=== PATIENT | male | born 1960 | race Caucasian/White ===

== ENCOUNTER 2019-12-07 23:49 | Observation (INO) | payer OTHER, BC ==
[~2019-12-07] VITALS: Ht 74 cm; Wt 88.0 kg
--- OUTSIDE RECORDS SUMMARY | 2019-12-07 23:56 | XMS REPORT | Continuity of Care Document ---
Author Organization Unknown Address Unknown Phone Unavailable Allergies Active Description Code Type Severity Reaction Onset Reported/Identified Relationship to Patient Clinical Status Yes Penicillins [id number] Drug Aller gy Unknown N/A 03/26/2008 Medications There is no data. 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 Results There is no data. Encounters ACCT No. Visit Date/Time Discharge Status Pt. Type Provider Facility Loc./Unit Complaint [id number] 12/07/2019 23:52:[address] Emergency AVNI ZARAGOZA DO [facility] ER FALL OFF TRAILOR,BACK PAIN [id number] 04/13/2011 07:41:00 Document Registration
--- OUTSIDE RECORDS SUMMARY | 2019-12-07 23:56 | XMS REPORT ---
Author Author Arjun CANO Organization [facility] Address [address] [place] [address] Phone Unavailable Care Team Providers Care Workforce Development Program Director Name Role Phone AMADA CANO Unavailable Unavailable PROBLEMS Unknown Problems ALLERGIES No Information ENCOUNTERS Encounter Location Date Diagnosis [facility] [address] [facility] [id number] [place] [address] Mar, Encounter for insurance exam ination Z02.6 IMMUNIZATIONS No Known Immunizations SOCIAL HISTORY Never Assessed REASON FOR VISIT Insurance Physical PLAN OF CARE Activity Details Follow Up prn Reason: VITAL SIGNS MEDICATIONS Unknown Medications RESULTS No Results PROCEDURES Procedure Date Ordered Result Body Site VENIPUNCT, ROUTINE* Mar 15, 2018 SPECIMEN HANDLING Mar 15, 2018 ELECTROCARDIOGRAM, TRACING Mar 15, 2018 INSTRUCTIONS MEDICATIONS ADMINISTERED No Known Medications
[2019-12-08] MEDS ORDERED: LACTATED RINGERS 1,000 ML IV ONE (00:51)
[2019-12-08] MEDS ORDERED: fentaNYL INJECTION 100 MCG/2 ML AMP IVP STA ×2 (00:51→02:38)
[2019-12-08 01:20] LABS: BASOPHILS % (AUTO) 0 % (0-10); EOSINOPHILS # (AUTO) 0.1 10^3/uL (0.0-0.3); EOSINOPHILS % (AUTO) 0 % (0-10); HEMATOCRIT 46 % (40-54); HEMOGLOBIN 15.8 G/DL (13.3-17.7); LYMPHOCYTES # (AUTO) 2.5 X 10^3 (1.0-4.0); LYMPHOCYTES % (AUTO) 16 % (12-44); MEAN CORPUSCULAR HEMOGLOBIN 30 PG (25-34); MEAN CORPUSCULAR HGB CONC 34 G/DL (32-36); MEAN CORPUSCULAR VOLUME 88 FL (80-99); MEAN PLATELET VOLUME 9.1 FL (7.4-10.4); MONOCYTES # (AUTO) 2.2 X 10^3 (0.0-1.0); MONOCYTES % (AUTO) 14 % (0-12); NEUTROPHILS # (AUTO) 10.7 X 10^3 (1.8-7.8); NEUTROPHILS % (AUTO) 69 % (42-75); PLATELET COUNT 283 10^3/uL (130-400); RED CELL DISTRIBUTION WIDTH 13.1 % (10.0-14.5); WHITE BLOOD COUNT 15.5 10^3/uL (4.3-11.0)
[2019-12-08 01:24] LABS: ALBUMIN 4.3 GM/DL (3.2-4.5)
[2019-12-08 01:25] LABS: AMYLASE 91 U/L (25-125); CHLORIDE 105 MMOL/L (98-107); POTASSIUM 3.8 MMOL/L (3.6-5.0); SODIUM 139 MMOL/L (135-145)
[2019-12-08 01:26] LABS: CALCIUM 10.3 MG/DL (8.5-10.1)
[2019-12-08 01:27] LABS: GLUCOSE 118 MG/DL (70-105); TOTAL PROTEIN 7.7 GM/DL (6.4-8.2)
[2019-12-08 01:28] LABS: CARBON DIOXIDE 20 MMOL/L (21-32)
[2019-12-08 01:29] LABS: BILIRUBIN,TOTAL 0.4 MG/DL (0.1-1.0)
[2019-12-08 01:30] LABS: ALKALINE PHOSPHATASE 58 U/L (40-136)
[2019-12-08 01:31] LABS: CREATININE SERUM 1.04 MG/DL (0.60-1.30); GFR ESTIMATED > 60
[2019-12-08 01:32] LABS: BUN/CREATININE RATIO 28
[2019-12-08 01:33] LABS: ALANINE AMINOTRANSFERASE 20 U/L (0-55)
[2019-12-08 01:34] LABS: LIPASE 55 U/L (8-78)
[2019-12-08 02:01] LABS: LYMPHOCYTES % (MANUAL) 16 %; MONOCYTES % (MANUAL) 9 %; NEUTROPHILS % (MANUAL) 75 %
[2019-12-08 02:02] LABS: RBC MORPH NORMAL
[2019-12-08 02:41] LABS: BILIRUBIN,URINE NEGATIVE (NEGATIVE); CLARITY,URINE CLEAR; COLOR,URINE YELLOW; GLUCOSE, URINE (UA) 2+ (NEGATIVE); KETONES,URINE 1+ (NEGATIVE); LEUKOCYTE ESTERASE ,URINE NEGATIVE (NEGATIVE); NITRITE,URINE NEGATIVE (NEGATIVE); PH,URINE 5.5 (5-9); PROTEIN,URINE TRACE (NEGATIVE)
[2019-12-08 02:53] LABS: BACTERIA,URINE NEGATIVE /HPF
[2019-12-08 02:54] LABS: SQUAMOUS EPITHELIAL CELL,UR RARE /HPF
[2019-12-08] MEDS ORDERED: IOHEXOL 350 MG/ML 100 ML (OMNIPAQUE 350) VIAL IV ONE (03:00)
[2019-12-08] MEDS ORDERED: HOLD METFORMIN - RECEIVED CONTRAST 20 ML VIAL IV SCH (03:00)
[2019-12-08] MEDS ORDERED: NS 100 ML (IVPB) BAG IV ONE (03:00)
[2019-12-08 04:30] VITALS: BP 119/77
[2019-12-08] MEDS ORDERED: D5 1/2 NS W/KCL 20 MEQ/L 1,000 ML IV ONE (04:40)
[2019-12-08 05:00] VITALS: BP 113/81
[2019-12-08 05:18] VITALS: BP 119/77
[2019-12-08] MEDS ORDERED: inSUlin ASPART (NovoLOG) 1 UNIT/0.01 ML (CHARGE PER UNIT) SC SCH (06:00)
[2019-12-08] MEDS ORDERED: D5 1/2 NS W/KCL 20 MEQ/L 1,000 ML IV SCH (06:00)
[2019-12-08] MEDS ORDERED: fentaNYL INJECTION 100 MCG/2 ML AMP IV PRN (06:00)
[2019-12-08 06:39] LABS: BILIRUBIN,URINE NEGATIVE (NEGATIVE); CLARITY,URINE CLEAR; COLOR,URINE YELLOW; GLUCOSE, URINE (UA) 2+ (NEGATIVE); KETONES,URINE TRACE (NEGATIVE); LEUKOCYTE ESTERASE ,URINE NEGATIVE (NEGATIVE); NITRITE,URINE NEGATIVE (NEGATIVE); PH,URINE 5.5 (5-9); PROTEIN,URINE NEGATIVE (NEGATIVE)
--- NOTE | 2019-12-08 07:03 | Diagnostic Imaging Report ---
PROCEDURE: CT head and CT cervical spine without contrast. TECHNIQUE: Multiple contiguous axial images were obtained through the brain and cervical spine without the use of intravenous contrast. Sagittal and coronal reformations through the cervical spine were then performed. Auto Exposure Controls were utilized during the CT exam to meet ALARA standards for radiation dose reduction. INDICATION: Fall with head and neck injury CT HEAD: CT images of the head were obtained. FINDINGS: Ventricles and sulci are within normal limits for size. There is no intracranial hemorrhage identified. There is no abnormal mass effect or shift of midline structures. IMPRESSION: Unremarkable CT of the head. CT CERVICAL SPINE: Multiple contiguous axial CT images of the cervical spine were obtained with sagittal and coronal reformatted images produced. FINDINGS: The cervical curvature and alignment are within normal limits. The vertebral body heights and disc spaces are maintained without evidence of fracture or subluxation. There is no paraspinous hematoma. There is moderate disc space narrowing from C4 through C7 with associated endplate spurring. IMPRESSION: No CT evidence of acute cervical spinal abnormality. Dictated by: Dictated on workstation # [id number]
--- NOTE | 2019-12-08 07:21 | Diagnostic Imaging Report ---
PROCEDURE: CT thoracic and lumbar spine without contrast. TECHNIQUE: Multiple contiguous axial images were obtained through the thoracic and lumbar spine without the use of intravenous contrast. Sagittal and coronal reformations were then performed. All CT scans use one or more of the following dose optimizing techniques: automated exposure control, MA and/or KvP adjustment based on a patient size and exam type, or iterative reconstruction. INDICATION: Fall off a trailer. Back and left-sided pain. COMPARISON: None. FINDINGS: No acute fracture or dislocation is seen in the thoracic and lumbar spine. Vertebral body heights are well-maintained. There is grade 1 anterolisthesis of L4 on L5. Otherwise, alignment of the thoracic and lumbar spine is anatomic. No focal osseous lesions are identified. Mild degenerative changes are present in the thoracic and lumbar spine, greatest at L5-S1 with disc osteophyte complex and facet hypertrophy. No high density material is seen in the spinal canal. The surrounding soft tissues of the thoracic and lumbar spine are unremarkable. The included pelvis demonstrates no acute fracture or dislocation. IMPRESSION: 1. No acute fracture or dislocation in the thoracic and lumbar spine. 2. Grade 1 anterolisthesis of L4 on L5. Agree with overnight report. Dictated by: Dictated on workstation # [id number]
--- NOTE | 2019-12-08 07:27 | Diagnostic Imaging Report ---
Indication: Injury from a fall AP view pelvis shows no fracture or dislocation. IMPRESSION: Negative pelvis Dictated by: Dictated on workstation # [id number]
--- NOTE | 2019-12-08 07:28 | Diagnostic Imaging Report ---
Indication: Chest injury from a fall Portable chest 2:00 AM Heart size and pulmonary vascularity are normal. Lungs are clear. There are no effusions or pneumothoraces. IMPRESSION: Negative chest Dictated by: Dictated on workstation # [id number]
[2019-12-08 07:38] LABS: BACTERIA,URINE NEGATIVE /HPF; SQUAMOUS EPITHELIAL CELL,UR 0-2 /HPF
--- NOTE | 2019-12-08 07:41 | Diagnostic Imaging Report ---
EXAMINATION: CT Chest, Abdomen and Pelvis with intravenous contrast. TECHNIQUE: Multiple contiguous axial images were obtained through the chest, abdomen and pelvis after the uneventful administration of intravenous contrast. All CT scans use one or more of the following dose optimizing techniques: automated exposure control, MA and/or KvP adjustment based on a patient size and exam type, or iterative reconstruction. HISTORY: Fell off a trailer 2'. Back and left-sided pain. COMPARISON: None available. FINDINGS: CT CHEST: The heart size is within normal limits. No pericardial effusion is present. There is no mediastinal, hilar, or axillary lymphadenopathy. The lungs demonstrate no pulmonary nodules or masses. There are no focal areas of consolidation. A small amount of dependent atelectasis is seen in the lung bases. No central endobronchial obstructing lesions are identified. Trace left-sided pneumothorax is visualized anterior to the heart. No pleural effusion is seen. The osseous structures demonstrate no acute abnormalities. CT ABDOMEN AND PELVIS: The liver, spleen, pancreas, adrenal glands, and kidneys have a normal appearance. There is no pathologically enlarged mesenteric or retroperitoneal adenopathy. The bowel loops are nondilated. Scattered diverticuli are present without evidence of acute diverticulitis. There is no free fluid or free air. The osseous structures demonstrate no acute abnormalities. 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 Ureters and bladder have a normal appearance. There is no free air, loculated collection, or adenopathy in the pelvis. IMPRESSION: 1. Trace left-sided pneumothorax anterior to the heart. No associated rib fractures are identified. No pleural effusion or pulmonary laceration. 2. No acute abnormalities in the abdomen and pelvis. No free fluid, free air, or acute inflammatory changes. Agree with overnight report. Dictated by: Dictated on workstation # [id number]
[2019-12-08 08:00] VITALS: BP 127/63
--- OUTSIDE RECORDS SUMMARY | 2019-12-08 08:03 | XMS REPORT | Continuity of Care Document ---
Author Organization Unknown Address Unknown Phone Unavailable Allergies Active Description Code Type Severity Reaction Onset Reported/Identified Relationship to Patient Clinical Status Yes Penicillins [id number] Drug Aller gy Unknown N/A 03/26/2008 Medications There is no data. 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 Results Test Result Range Complete blood count (CBC) with automate d white blood cell (WBC) differential - 12/08/19 01:01 Blood leukocytes automated count (number/volume) 15.5 10*3/uL 4.3-11.0 Blood erythrocytes automated count (number/volume) 5.27 10*6/uL 4.35-5.85 Venous blood hemoglobin measurement (mass/volume) 15.8 g/dL 13.3-17.7 Blood hematocrit (volume fraction) 46 % 40-54 Automated erythrocyte mean corpuscular volume 88 [ foz_us] 80-99 Automated erythrocyte mean corpuscular h emoglobin (mass per erythrocyte) 30 pg 25-34 Automated erythrocyte mean corpuscular h emoglobin concentration measurement (mass/volume) 34 g/dL 32-36 Automated erythrocyte distribution width ratio 13. 1 % 10.0- 14.5 Automated blood platelet count (count/volume) 283 10*3/uL 130-400 Automated blood platelet mean volume measurement 9.1 [foz_us] 7.4-10.4 Automated blood neutrophils/100 leukocytes 69 % 42-75 Automated blood lymphocytes/100 leukocytes 16 % 12-44 Blood monocytes/100 leukocytes 14 % 0-12 Automated blood eosinophils/100 leukocytes 0 % 0-10 Automated blood basophils/100 leukocytes 0 % 0-10 Blood neutrophils automated count (number/volume) 10.7 10*3 1.8-7.8 Blood lymphocytes automated count (number/volume) 2.5 10*3 1.0-4.0 Blood monocytes automated count (number/volume) 2. 2 10*3 0.0-1.0 Automated eosinophil count 0.1 10*3/uL 0 .0-0.3 Automated blood basophil count (count/volume) 0.0 10*3/uL 0.0-0.1 Comprehensive metabolic panel - 12/08/19 01:01 Serum or plasma sodium measurement (moles/volume) 139 mmol/L 135-145 Serum or plasma potassium measurement (moles/volume) 3.8 mmol/L 3.6-5.0 Serum or plasma chloride measurement (moles/volume) 105 mmol/L 98-107 Carbon dioxide 20 mmol/L 21-32 Serum or plasma anion gap determination (moles/volume) 14 mmol/L 5-14 Serum or plasma urea nitrogen measurement (mass/volume ) 29 mg/dL 7-18 Serum or plasma creatinine measurement (mass/volume) 1.04 mg/dL 0.60-1.30 Serum or plasma urea nitrogen/creatinine mass ratio 28 NRG Serum or plasma creatinine measurement w ith calculation of estimated glomerular filtration rate > NRG Serum or plasma glucose measurement (mass/volume) 118 mg/dL 70-105 Serum or plasma calcium measurement (mass/volume) 10.3 mg/dL 8.5-10.1 Serum or plasma total bilirubin measurement (mass/volu me) 0.4 mg/dL 0.1-1.0 Serum or plasma alkaline phosphatase chandni surement (enzymatic activity/volume) 58 U/L 40-136 Serum or plasma aspartate aminotransfera se measurement (enzymatic activity/volume) 29 U/L 5-34 Serum or plasma alanine aminotransferase measurement (enzymatic activity/volume) 20 U/L 0-55 Serum or plasma protein measurement (mass/volume) 7.7 g/dL 6.4-8.2 Serum or plasma albumin measurement (mass/volume) 4.3 g/dL 3.2-4.5 CALCIUM CORRECTED 10.1 mg/dL 8.5-10.1 Serum or plasma amylase measurement (enz ymatic activity/volume) - 12/08/19 01:01 Serum or plasma amylase measurement (enzymatic activit y/volume) 91 U/L 25-125 Lipase - 12/08/19 01:01 Lipase 55 U/L 8-78 Manual absolute plasma cell count - 09/23 01:01 Blood monocytes/100 leukocytes 9 % NRG Manual blood segmented neutrophils/100 leukocytes 75 % NRG Manual blood lymphocytes/100 leukocytes 16 % NRG Blood erythrocyte morphology finding identification NORMAL NRG Complete urinalysis with reflex to cultu re - 12/08/19 02:34 Urine color determination YELLOW NRG Urine clarity determination CLEAR NR G Urine pH measurement by test strip 5.5 5-9 Specific gravity of urine by test strip >= 1.016-1.022 Urine protein assay by test strip, semi-quantitative TRACE NEGATIVE Urine glucose detection by automated test strip 2+ NEGATIVE Erythrocytes detection in urine sediment by light micr oscopy 3+ NEGATIVE Urine ketones detection by automated test strip 1+ NEGATIVE Urine nitrite detection by test strip NEGATIVE NEGATIVE Urine total bilirubin detection by test strip NEGA TIVE NEGATIVE Urine urobilinogen measurement by automated test strip (mass/volume) 0.2 mg/dL < = 1.0 Urine leukocyte esterase detection by dipstick NEG ATIVE NEGATIVE Automated urine sediment erythrocyte cou nt by microscopy (number/high power field) [HPF] NRG Automated urine sediment leukocyte count by microscopy (number/high power field) NONE NRG Bacteria detection in urine sediment by light microsco py NEGATIVE NRG Squamous epithelial cells detection in u rine sediment by light microscopy RARE NRG Crystals detection in urine sediment by light microsco py NONE NRG Casts detection in urine sediment by light microscopy NONE NRG Mucus detection in urine sediment by light microscopy SMALL NRG Complete urinalysis with reflex to culture NO NRG Encounters ACCT No. Visit Date/Time Discharge Status Pt. Type Provider Facility Loc./Unit Complaint [id number] 12/08/2019 03:00:[address] Inpatient YEISON HAUSER MD [facility] CSD S/P FALL FROM TRAILER;L PNEU MOTHORAX [id number] 04/13/2011 07:41:00 Document Registration
[2019-12-08 08:13] LABS: BASOPHILS % (AUTO) 0 % (0-10); EOSINOPHILS # (AUTO) 0.1 10^3/uL (0.0-0.3); EOSINOPHILS % (AUTO) 1 % (0-10); HEMATOCRIT 44 % (40-54); HEMOGLOBIN 14.7 G/DL (13.3-17.7); LYMPHOCYTES # (AUTO) 2.3 X 10^3 (1.0-4.0); LYMPHOCYTES % (AUTO) 25 % (12-44); MEAN CORPUSCULAR HEMOGLOBIN 30 PG (25-34); MEAN CORPUSCULAR HGB CONC 34 G/DL (32-36); MEAN CORPUSCULAR VOLUME 88 FL (80-99); MEAN PLATELET VOLUME 8.8 FL (7.4-10.4); MONOCYTES # (AUTO) 1.7 X 10^3 (0.0-1.0); MONOCYTES % (AUTO) 18 % (0-12); NEUTROPHILS # (AUTO) 5.3 X 10^3 (1.8-7.8); NEUTROPHILS % (AUTO) 56 % (42-75); PLATELET COUNT 242 10^3/uL (130-400); RED CELL DISTRIBUTION WIDTH 13.1 % (10.0-14.5); WHITE BLOOD COUNT 9.5 10^3/uL (4.3-11.0)
[2019-12-08 08:22] LABS: ALBUMIN 3.6 GM/DL (3.2-4.5)
[2019-12-08 08:23] LABS: CHLORIDE 106 MMOL/L (98-107); POTASSIUM 3.7 MMOL/L (3.6-5.0); SODIUM 138 MMOL/L (135-145)
[2019-12-08 08:25] LABS: GLUCOSE 133 MG/DL (70-105); TOTAL PROTEIN 6.4 GM/DL (6.4-8.2)
[2019-12-08 08:26] LABS: CARBON DIOXIDE 23 MMOL/L (21-32)
[2019-12-08 08:27] LABS: BILIRUBIN,TOTAL 0.6 MG/DL (0.1-1.0)
[2019-12-08 08:29] LABS: ALKALINE PHOSPHATASE 51 U/L (40-136); CREATININE SERUM 0.88 MG/DL (0.60-1.30); GFR ESTIMATED > 60
[2019-12-08 08:30] LABS: BUN/CREATININE RATIO 23
[2019-12-08 08:32] LABS: ALANINE AMINOTRANSFERASE 17 U/L (0-55)
--- NOTE | 2019-12-08 10:00 | Diagnostic Imaging Report ---
INDICATION: Pneumothorax Upright portable inspiration chest shows normal heart size and vascularity. The lungs are clear. There is no effusion or pneumothorax. There is the appearance of a tiny apical pneumothorax on the left with separation of the lung from the apex of only 2-3 mm. IMPRESSION: Tiny left apical pneumothorax. Dictated by: Dictated on workstation # [id number]
--- NOTE | 2019-12-08 10:09 | Diagnostic Imaging Report ---
INDICATION: Fall with chest injury Single AP view of the chest is obtained with comparison made to study of earlier in the day. There is mild perihilar atelectasis however no pneumothorax is appreciated. There is no evidence of significant pleural fluid. No definite fracture is seen. IMPRESSION: Perihilar atelectasis due to expiratory state. Otherwise, no acute abnormality is identified. Dictated by: Dictated on workstation # [id number]
[2019-12-08] MEDS ORDERED: IBUP-1780 PO (11:20)
[2019-12-08] MEDS ORDERED: TRAM50TA3 PO (11:22)
[2019-12-08 12:00] VITALS: BP 145/80
--- NOTE | 2019-12-08 12:00 | NUR ---
This nurse received a verbal order from to discharge patient. stated that patient does not need to follow up with him. wrote the patient scripts for pain control and wrote the patient a note for work. this nurse removed patients IV, tip is intact. Gauze and tape applied to site. Entire discharge packet discussed with patient including new medications. Patient stated that he does not have any further questions att. Patients is at bedside, she is his ride home. Patient leaving floor at 1200, with MAXWELL Tai, who is walking with him to entrance.
--- NOTE | 2019-12-08 12:13 | HISTORY AND PHYSICAL ---
DATE OF SERVICE: ATTENDING PRIMARY CARE PHYSICIAN: Dr. Shakir Rouse. HISTORY OF PRESENT ILLNESS: The patient is a 59-year-old male, who was working on an automotive trailer, which was moving a large piece of equipment. As he and others were working on unloading, his feet hit the rail and he fell back, which was approximately 3 feet up. He felt pain in his left upper back. He states that he was able to ambulate afterwards; however, the pain persisted and he decided to come to the Emergency Department. A CT scan of the head, neck, chest, abdomen and pelvis were performed, which did not show any abnormalities; however, the chest x-ray did show a very small apical pneumothorax likely secondary to a barotrauma. Followup chest x-ray today does not show any pneumothorax. He is awake and alert with a Morton coma scale of 15 and is ambulating well with adequate pain control at this time. PAST MEDICAL HISTORY: Hypertension, hypercholesterolemia, gastroesophageal reflux disease and diabetes. PAST SURGICAL HISTORY: Lumbar diskectomy and left ankle ORIF. ALLERGIES: PENICILLIN. MEDICATIONS: Invokana, Nexium, aspirin, ranitidine and benazepril. SOCIAL HISTORY: Negative smoke and negative alcohol. FAMILY HISTORY: Mother, lung cancer. Father with coronary artery disease. REVIEW OF SYSTEMS: Well-nourished male in no acute distress. He is not experiencing any shortness of breath or difficulty breathing. No chest pain, palpitations or diaphoresis. No nausea, vomiting, no diarrhea or constipation. No headache or visual changes. No fever, chills and no recent inadvertent weight loss. All other review of systems negative. PHYSICAL EXAMINATION: VITAL SIGNS: Stable, afebrile. CHEST: Clear. Good breath sounds bilaterally, slightly tender to palpation along the posterolateral back just below the scapula on the left side. No crepitance. HEART: Regular and no murmurs. EXTREMITIES: No lower extremity edema and negative Homans sign. HEENT: No scleral icterus and no cervical lymphadenopathy. ABDOMEN: Soft, nontender and nondistended. SKIN: Warm and dry. ASSESSMENT AND PLAN: A 59-year-old male with fall with rib contusions as well as a small apical pneumothorax upon admission due to barotrauma, which has resolved on followup chest x-ray. We will start him on a regular diet as well as oral pain medication and once he has adequate pain control per oral pain medication, we will discharge him home. We also recommend frequent ambulation as well as deep breathing exercises. Job ID: [id number] DocumentID: [id number] Dictated Date: 12/08/2019 11:09:32 Resident Manager Date: 12/08/2019 12:12:45 Dictated By: YEISON HAUSER MD MTDD
--- NOTE | 2019-12-09 06:28 | ED Fall/Injury ---
General Chief Complaint: Trauma-Non Activation Stated Complaint: S/P FALL FROM TRAILER;L PNEUMOTHORAX Nursing Triage Note: Pt to RM 5 with daughter at bedside. Pt states he fell back off a trailer about 2 ft off ground approx 2130 tonight. PT hit back of head, denies LOC. PT is c/o back and left side pain, 5/10. 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 Source: patient History of Present Illness Date Seen by Provider: Dec 08, 2019 Time Seen by Provider: 00:08 Initial Comments PT ARRIVES VIA POV FROM HOME PT STATES AROUND 2130 TONIGHT, HE WAS LOADING EQUIPMENT ONTO A CAR TRAILER, AND GOT HIS LEG CAUGHT IN SIDE RAILING AND FELL BACKWARDS OFF THE TRAILER--APPROXIMATELY 3 FEET HIGH-AND LANDED ON HIS BACK STATES HE HIT THE BACK OF HIS HEAD, BUT HAD NO LOSS OF CONSCIOUSNESS DOES NOT HAVE A HEADACHE C/O PAIN TO LEFT MID AND UPPER BACK / POSTERIOR CHEST, AND LEFT MID AND LOWER CHEST STATES IT HURTS TO BREATH, BUT DOES NOT ACTUALLY FEEL SHORT OF BREATH STATES LEFT SIDE OF HIS NECK IS STARTING TO GET SORE AND STIFF NO PARESTHESIAS OR MOTOR DEFICITS NO DIZZINESS NO NAUSEA/VOMITING NO VISION CHANGES HAS NOT TAKEN ANYTHING FOR PAIN PAIN IS WORSE WITH SITTING AND SOMEWHAT IMPROVED WITH STANDING Allergies and Home Medications Allergies Coded Allergies: Penicillins (Verified Allergy, Unknown, 03/26/08) Home Medications Ibuprofen 800 Mg Tablet, 800 MG PO Q8H PRN for PAIN-MILD Prescribed by: XAVIER KAM on 12/08/19 1120 Tramadol HCl 50 Mg Tablet, 50 MG PO every 4-6hrs PRN Prescribed by: XAVIER KAM on 12/08/19 1122 Patient Home Medication List Home Medication List Reviewed: Yes Review of Systems Review of Systems Constitutional: no symptoms reported Eyes: No Symptoms Reported Ears, Nose, Mouth, Throat: no symptoms reported Respiratory: see HPI; No short of breath; other (HURTS TO BREATHE) Cardiovascular: see HPI, chest pain Gastrointestinal: no symptoms reported; No abdominal pain, No nausea, No vomiting Genitourinary: no symptoms reported Musculoskeletal: see HPI, back pain Skin: no symptoms reported Psychiatric/Neurological: No Symptoms Reported; Denies Headache, Denies Numbness, Denies Paresthesia, Denies Tingling, Denies Weakness Past [id number] Hx Past Med/Social Hx: Reviewed and Corrections made Patient Social History Alcohol Use: Denies Use Recreational Drug Use: No Smoking Status: Never a Smoker 2nd Hand Smoke Exposure: No Recent Foreign Travel: No Contact w/Someone Who Travel: No Recent Infectious Disease Expo: No Recent Hopitalizations: Yes Past Medical History Surgeries: Yes (LUMBAR DISCECTOMY; LEFT ANKLE FX/ORIF) Orthopedic Respiratory: No Cardiac: Yes High Cholesterol, Hypertension Neurological: No Reproductive Disorders: No Genitourinary: No Gastrointestinal: Yes Gastroesophageal Reflux Musculoskeletal: Yes (LEFT ANKLE FX/ORIF; LUMBAR DISCECTOMY) Degenerate Disk Disease, Chronic Back Pain, Fractures Endocrine: Yes Diabetes, Non-Insulin dep HEENT: No Cancer: No Psychosocial: No Integumentary: No Blood Disorders: No Physical Exam Vital Signs Vital Signs - First Documented 12/08/19 00:06 Temp 37.0 Pulse 102 Resp 19 B/P (MAP) 152/79 (103) Pulse Ox 96 O2 Delivery Room Air Capillary Refill : Less Than 3 Seconds Height, Weight, BMI Height: '" Weight: lbs. oz. kg; 160.70 BMI Method: General Appearance: WD/WN, no apparent distress, other (APPEARS TO BE IN PAIN) HEENT: PERRL/EOMI, normal ENT inspection, TMs normal, pharynx normal Neck: tender lateral (TENDERNESS TO LEFT LATERAL CERVICAL PARAVERTEBRAL MUSCLES WITH MILD SPASMS. ) Cardiovascular: normal peripheral pulses, regular rate, rhythm, no edema, no JVD, no murmur Respiratory: normal breath sounds, no respiratory distress, no accessory muscle use, other (TENDERNESS TO LEFT MID AND LOWER ANTERIOR CHEST. NO CREPITANCE OR SUB Q AIR OR DEFORMITY TO CHEST. NO EXTERNAL EVIDENCE OF TRAUMA TO ANTERIOR CHEST. ) Peripheral Pulses: 3+ Dorsalis Pedis (R), 3+ Left Dors-Pedis (L), 3+ Radial Pulses (R), 3+ Radial Pulses (L) Gastrointestinal: normal bowel sounds, non tender, soft Back: CVA tenderness (L), vertebral tenderness, other (LEFT UPPER AND MID BACK WITH LARGE AREA OF EARLY ECCHYMOSIS, WITH MODERATE TENDERNESS TO AREA, INCLUDING SCAPULA AND POSTERIOR CHEST WALL, WITH SOME LEFT FLANK TENDERNESS. 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, no motor/sensory deficits, alert, normal mood/affect, oriented x 3 Skin: normal color, warm/dry, ecchymosis Kimberly Coma Score Best Eye Response: (4) Open Spontaneously Best Verbal Response: (5) Oriented Best Motor Response: (6) Obeys Commands [place] Total: 15 Progress/Results/Core Measures Results/Orders Lab Results Laboratory Tests Test 12/08/19 01:01 12/08/19 02:34 Range/Units White Blood Count 15.5 H 4.3-11.0 10^3/uL Red Blood Count 5.27 4.35-5.85 10^6/uL Hemoglobin 15.8 13.3-17.7 G/DL Hematocrit 46 40-54 % Mean Corpuscular Volume 88 80-99 FL Mean Corpuscular Hemoglobin 30 25-34 PG Mean Corpuscular Hemoglobin Concent 34 32-36 G/DL Red Cell Distribution Width 13.1 10.0-14.5 % Platelet Count 283 130-400 10^3/uL Mean Platelet Volume 9.1 7.4-10.4 FL Neutrophils (%) (Auto) 69 42-75 % Lymphocytes (%) (Auto) 16 12-44 % Monocytes (%) (Auto) 14 H 0-12 % Eosinophils (%) (Auto) 0 0-10 % Basophils (%) (Auto) 0 0-10 % Neutrophils # (Auto) 10.7 H 1.8-7.8 X 10^3 Lymphocytes # (Auto) 2.5 1.0-4.0 X 10^3 Monocytes # (Auto) 2.2 H 0.0-1.0 X 10^3 Eosinophils # (Auto) 0.1 0.0-0.3 10^3/uL Basophils # (Auto) 0.0 0.0-0.1 10^3/uL Neutrophils % (Manual) 75 % Lymphocytes % (Manual) 16 % Monocytes % (Manual) 9 % Blood Morphology Comment NORMAL Sodium Level 139 135-145 MMOL/L Potassium Level 3.8 3.6-5.0 MMOL/L Chloride Level 105 98-107 MMOL/L Carbon Dioxide Level 20 L 21-32 MMOL/L Anion Gap 14 5-14 MMOL/L Blood Urea Nitrogen 29 H 7-18 MG/DL Creatinine 1.04 0.60-1.30 MG/DL Estimat Glomerular Filtration Rate > 60 BUN/Creatinine Ratio 28 Glucose Level 118 H 70-105 MG/DL Calcium Level 10.3 H 8.5-10.1 MG/DL Corrected Calcium 10.1 8.5-10.1 MG/DL Total Bilirubin 0.4 0.1-1.0 MG/DL Aspartate Amino Transf (AST/SGOT) 29 5-34 U/L Alanine Aminotransferase (ALT/SGPT) 20 0-55 U/L Alkaline Phosphatase 58 40-136 U/L Total Protein 7.7 6.4-8.2 GM/DL Albumin 4.3 3.2-4.5 GM/DL Amylase Level 91 25-125 U/L Lipase 55 8-78 U/L Urine Color YELLOW Urine Clarity CLEAR Urine pH 5.5 5-9 Urine Specific Apex >=1.030 1.016-1.022 Urine Protein TRACE H NEGATIVE Urine Glucose (UA) 2+ H NEGATIVE Urine Ketones 1+ H NEGATIVE Urine Nitrite NEGATIVE NEGATIVE Urine Bilirubin NEGATIVE NEGATIVE Urine Urobilinogen 0.2 < = 1.0 MG/DL Urine Leukocyte Esterase NEGATIVE NEGATIVE Urine RBC (Auto) 3+ H NEGATIVE Urine RBC 10-25 H /HPF Urine WBC NONE /HPF Urine Squamous Epithelial Cells RARE /HPF Urine Crystals NONE /LPF Urine Bacteria NEGATIVE /HPF Urine Casts NONE /LPF Urine Mucus SMALL H /LPF Urine Culture Indicated NO My Orders Orders - AVNI ZARAGOZA DO Ed Iv/Invasive Line Start (12/08/19 00:51) Monitor-Rhythm Ecg Trace Only (12/08/19 00:51) Chest 1 View, Ap/Pa Only (12/08/19 00:51) Pelvis (12/08/19 00:51) Amylase (12/08/19 00:51) Cbc With Automated Diff (12/08/19 00:51) Comprehensive Metabolic Panel (12/08/19 00:51) Lipase (12/08/19 00:51) Ua Culture If Indicated (12/08/19 00:51) Ed Iv/Invasive Line Start (12/08/19 00:51) Lactated Ringers (Lr 1000 Ml Iv Solution (12/08/19 00:51) Fentanyl Injection (Sublimaze Injection (12/08/19 00:51) Ct Chest/Abdomen/Pelvis W (12/08/19 00:51) Manual Differential (12/08/19 01:01) Ct Head/Cervical Spine Wo (12/08/19 01:25) Ct Thoracic/Lumbar Spine Wo (12/08/19 01:25) Fentanyl Injection (Sublimaze Injection (12/08/19 02:38) Iohexol Injection (Omnipaque 350 Mg/Ml 1 (12/08/19 03:00) Received Contrast (Hold Metformin- Contr (12/08/19 03:00) Ns (Ivpb) (Sodium Chloride 0.9% Ivpb Bag (12/08/19 03:00) Vital Signs/I&O 12/08/19 00:06 Temp 37.0 Pulse 102 Resp 19 B/P (MAP) 152/79 (103) Pulse Ox 96 O2 Delivery Room Air Blood Pressure Mean: 101 Progress Progress Note : Progress Note PAIN EASED WITH FENTANYL NO DETERIORATION IN PT'S CONDITION DURING ER STAY NO DYSPNEA OR HYPOXIA OR TACHYPNEA OR TACHYCARDIA VITALS STABLE. Diagnostic Imaging Comments CXR--NO ACUTE PROCESS, PENDING RADIOLOGIST REVIEW PELVIS XRAY--NO ACUTE PROCESS, PENDING RADIOLOGIST REVIEW CT HEAD/CERVICAL SPINE--NO ACUTE PROCESS, DEGENERATIVE CHANGES OF CERVICAL SPINE--PER [facility] VIA FAX AT [address]257 CT THORACIC/LUMBAR SPINE--NEGATIVE THORACIC SPINE, NO LUMBAR FRACTURE, DEGENERATIVE CHANGES OF SPINE--PER [facility] VIA FAX AT [address]257 CT CHEST/ABDOMEN/PELVIS--VERY SMALL LEFT PNEUMOTHORAX, WITH SPICULES OF AIR ALONG ANTERIOR HEART BORDER. NO DEFINITE RIB FRACTURE. NO OTHER CHEST INJURY. QUESTIONABLE FRACTURE OF RIGHT TRANSVERSE PROCESS OF L1 VS DEVELOPMENTAL ANOMALY. NO INTRA-ABDOMINAL INJURY--PER [facility] VIA FAX AT 0258 Reviewed: Reviewed by Nv Departure Communication (Admissions) 0303--SPOKE WITH DR. HAUSER, TRAUMA SURGEON. ACCEPTS PT FOR ADMIT. Impression Primary Impression: S/P FALL FROM TRAILER Additional Impressions: SMALL LEFT PNEUMOTHORAX Minor head injury without loss of consciousness CERVICAL SPINE STRAIN MICROSCOPIC HEMATURIA,TRAUMATIC Disposition: ADMITTED INPATIENT Condition: Stable Admissions Decision to Admit Reason: Admit from ER (Trauma) Decision to Admit/Date: Dec 08, 2019 Time/Decision to Admit Time: 03:00 Departure-Patient Inst. Referrals: DOUGLAS DICKINSON MD (PCP) Primary Care Physician Patient Instructions: Tramadol Scripts Tramadol HCl (Tramadol HCl) 50 Mg Tablet 50 MG PO every 4-6hrs PRN, #60 TAB Prov: YEISON HAUSER MD 12/08/19 Ibuprofen (Ibuprofen) 800 Mg Tablet 800 MG PO Q8H PRN for PAIN-MILD, #45 TAB Prov: YEISON HAUSER MD 12/08/19 AVNI ZARAGOZA DO Dec 09, 2019 06:28
== END 2019-12-08 12:00 | disposition home or self-care (01) ==
LOC: EDUNIT# 23:49 → ER 23:52 → CSD 12-08 03:00
PROVIDERS: ADMIT Surgery; ATTEND Surgery
DX: S27.0XXA Traumatic pneumothorax, initial encounter (principal); S16.1XXA Strain of muscle, fascia and tendon at neck level, initial encounter; S09.90XA Unspecified injury of head, initial encounter; R31.29 Other microscopic hematuria; M54.9 Dorsalgia, unspecified; I10 Essential (primary) hypertension; E11.9 Type 2 diabetes mellitus without complications; E78.00 Pure hypercholesterolemia, unspecified; K21.9 Gastro-esophageal reflux disease without esophagitis; G89.29 Other chronic pain; Z79.899 Other long term (current) drug therapy; Z79.82 Long term (current) use of aspirin; Z79.84 Long term (current) use of oral hypoglycemic drugs; Z88.0 Allergy status to penicillin; Z80.1 Family history of malignant neoplasm of trachea, bronchus and lung; W17.89XA Other fall from one level to another, initial encounter
CPT/HCPCS: 70450; 71045 ×2; 71260; 72125; 72128; 72131; 72170; 74177; 80053; 81000; 82150; 83690; 85007; 85025; 85027; 93041; 96361; 96374; 96376; 99284; G0378; 36415

== ENCOUNTER 2020-10-23 07:18 | Outpatient (CLI) | payer OTHER, BC ==
[~2020-10-23] VITALS: Ht 188 cm; Wt 84.0 kg
[~2020-10-23 07:18] MED LIST: IBUP-1780 PO; TRAM50TA3 PO
[2020-10-23] MEDS ORDERED: ESOM20CA PO (09:32)
[2020-10-23] MEDS ORDERED: ASPI-906 PO (09:32)
[2020-10-23] MEDS ORDERED: METF-397 PO (09:32)
[2020-10-23] MEDS ORDERED: BENA10TA66 PO (09:32)
[2020-10-23] MEDS ORDERED: ATOR40TA70 PO (09:32)
== END 2020-10-23 12:42 | disposition home or self-care (01) ==
LOC: PREOP 07:18
PROVIDERS: ATTEND Internal Medicine
DX: Z01.818 Encounter for other preprocedural examination (principal)

== ENCOUNTER 2020-10-31 07:30 | Day surgery (SDC) | payer BC, OTHER ==
[~2020-10-31] VITALS: Ht 188 cm; Wt 84.0 kg
[2020-10-31] VITALS (11 sets, daily range): BP systolic 101–145; BP diastolic 62–101
[~2020-10-31 07:30] MED LIST changes: +ASPI-906 PO; +ATOR40TA70 PO; +BENA10TA66 PO; +D5 LR IV SOLUTION 1,000 ML IV ONE; +ESOM20CA PO; +METF-397 PO
[2020-10-31] MEDS ORDERED: D5 LR IV SOLUTION 1,000 ML IV STA (07:38)
[2020-10-31] MEDS ORDERED: fentaNYL INJ 100 MCG/2 ML AMP IVP ONE (07:45)
[2020-10-31] MEDS ORDERED: LIDOCAINE JELLY 2% 6 ML SYRINGE MM PRN (07:45)
[2020-10-31] MEDS ORDERED: MIDAZOLAM 5 MG/5 ML (VERSED) VIAL IV ONE (07:45)
[2020-10-31] MEDS ORDERED: LIDOCAINE JELLY 2% 6 ML SYRINGE ONE (07:49)
[2020-10-31] MEDS ORDERED: fentaNYL INJ 100 MCG/2 ML AMP ONE (07:49)
[2020-10-31] MEDS ORDERED: MIDAZOLAM 5 MG/5 ML (VERSED) VIAL ONE (07:49)
--- NOTE | 2020-10-31 07:56 | Pre-Op Note & Conscious Sedat ---
Pre-Operative Progress Note H&P Reviewed The H&P was reviewed, patient examined and no changes noted. Date H&P Reviewed: October 31, 2020 Time H&P Reviewed: 07:55 Conscious Sedation Pre-Proced ASA Score 2 For ASA 3 and 4: Consider anesthesia and medical clearance. Also, for patients with a history of failed moderate sedation consider anesthesia. Airway Lungs Heart ASA score ASA 1: a normal healthy patient ASA 2: a patient with a mild systemic disease (mid diabetes, controlled hypertension, obesity ASA 3: a patient with a severe systemic disease that limits activity (angina, COPD, prior Myocardial infarction) ASA 4: a patient with an incapacitating disease that is a constant threat to life (CHF, renal failure) ASA 5: a moribund patient not expected to survive 24 hrs. (ruptured aneurysm) ASA 6: a declared brain- patient whose organs are being harvested. For emergent operations, add the letter E after the classification Mallampati Classification Grade 1 Sedation Plan Analgesia, Amnesia, Plan communicated to team members, Discussed options with patient/fam, Discussed risks with patient/fam The patient is an appropriate candidate to undergo the planned procedure, sedation, and anesthesia. The patient immediately re-assessed prior to indication. DOUGLAS DICKINSON MD October 31, 2020 07:56
--- NOTE | 2020-10-31 12:39 | OPERATIVE REPORT ---
DATE OF SERVICE: COLONOSCOPY SUMMARY INDICATION FOR THE PROCEDURE: Screening. I am his primary care provider. DESCRIPTION OF PROCEDURE: Prior to undergoing colonoscopy, digital rectal evaluation was performed. Anal sphincter tone was normal and the perianal reflexes intact. Prostate is normal in size, anodular, nontender to digital inspection. No abnormalities were noted on digital inspection of anal canal or distal rectal vault. The colonoscope was then inserted into the rectum and under direct visualization advanced to cecum. The cecum was identified by identification of the ileocecal valve and cecal strap. Photographic documentation was obtained. Careful inspection was made as the colonoscope withdrawn. Quality of prep was good. FINDINGS: There was no evidence for internal or external hemorrhoids and the rectum was unremarkable. Moderate number of small to medium size diverticulum were noted in the sigmoid as well as descending colon without evidence for diverticulitis. No other abnormalities noted in these areas. The splenic flexure, transverse colon, hepatic flexure, ascending colon and cecum were unremarkable with no evidence for neoplasia. ASSESSMENT: Moderate diverticular disease noted predominantly in the sigmoid colon to a lesser extent and transverse colon was present without evidence for diverticulitis. This was otherwise unremarkable colonoscopy including digital rectal evaluation of the prostate and distal anal canal. We would advocate consideration for repeat screening colonoscopy in 10 years. Job ID: [id number] DocumentID: [id number] Dictated Date: 10/31/2020 09:06:40 Cfo Controller Date: 10/31/2020 12:38:36 Dictated By: DOUGLAS DICKINSON MD
--- NOTE | 2020-10-31 14:37 | Anesthesia-General Post-Op ---
MAC Patient Condition Mental Status/LOC: Same as Preop Cardiovascular: Satisfactory Nausea/Vomiting: Absent Respiratory: Satisfactory Pain: Controlled Complications: Absent Post Op Complications Complications None Follow Up Care/Instructions Patient Instructions None needed. Anesthesiology Discharge Order Discharge Order Patient is doing well, no complaints, stable vital signs, no apparent adverse anesthesia problems. No complications reported per nursing. ASHLEE ENRIQUEZ CRNA October 31, 2020 14:37
--- NOTE | 2020-11-04 12:26 | HISTORY AND PHYSICAL ---
DATE OF SERVICE: COLONOSCOPY HISTORY AND PHYSICAL HISTORY OF PRESENT ILLNESS: The patient is a 60-year-old white male seen for yearly wellness evaluation on 10/09. He had accomplished one of the screening colonoscopy 10 years ago and is being set up for repeat screening colonoscopy. He is deemed to be of average risk as he is not aware of any family history for colon cancer and had no evidence for neoplasia 10 years ago. He reports that he has been doing well and the interim does have a history of type 2 diabetes and hypertension with no known history of vascular disease. Activity level has been stable. Weight has been stable. He has noted no blood in the stools. He has had no bowel habit change. FAMILY HISTORY: Updated and there have been no significant changes. His sister is alive and well living in her 60s. Father of complications of sepsis at the age of 77 and mother of lung cancer with positive smoking history at the age of 82. SOCIAL HISTORY: The patient has no past smoking history or significant alcohol intake, employed, with adult children. PHYSICAL EXAMINATION: GENERAL: Reveals a white male, who appeared to be in no acute distress. VITAL SIGNS: Weight stable at 185.8 pounds, blood pressure 130/88. HEENT: Unremarkable. NECK: Revealed no JVD, adenopathy or bruits. Ear canals clear with normal TMs. CHEST: Clear to auscultation. CARDIOVASCULAR: Reveals a regular rate and rhythm without murmur, S3 or S4. ABDOMEN: Soft, supple without mass, organomegaly or tenderness. EXTREMITIES: Reveal no cyanosis, clubbing or edema. SKIN: Evaluation reveals no suspicious nevi. LABORATORY DATA: Blood tests were reviewed with the patient, A1c level was 7.4%, stable with a fasting sugar was a little bit higher at 137, BUN was 30 with creatinine of 1. ASSESSMENT AND PLAN: 1. The patient is set up for screening colonoscopy on 10/24/2020. Prep instructions and Suprep kit were given and questions were answered. 2. Type 2 diabetes mellitus, fair control, but could be better. He has had problems tolerating anything more than a gram of metformin in the past due to diarrhea and currently is taking in Invokamet 150/1000 mg daily. We will increase Invokana portion 300 mg daily by switching to the 150/500 XR Invokamet and giving 2 daily. We will repeat A1c in 4 months as well as BMP and screening PSA. Job ID: [id number] DocumentID: [id number] Dictated Date: 10/09/2020 09:52:42 Picker And Sorter Load And Unload Date: 10/09/2020 10:38:05 Dictated By: DOUGLAS DICKINSON MD <Dictated by DOUGLAS DICKINSON MD> <Electronically signed by DOUGLAS DICKINSON MD> 10/29/20 [id number]
== END 2020-10-31 09:05 | disposition home or self-care (01) ==
LOC: ENDO 07:30
PROVIDERS: ATTEND Internal Medicine
DX: Z12.11 Encounter for screening for malignant neoplasm of colon (principal); K57.30 Diverticulosis of large intestine without perforation or abscess without bleeding; E11.9 Type 2 diabetes mellitus without complications; I10 Essential (primary) hypertension; Z79.84 Long term (current) use of oral hypoglycemic drugs; Z79.899 Other long term (current) drug therapy

== ENCOUNTER → 2021-08-13 | Outpatient (CLI) | payer SELFPAY ==
[~2021-08-13] MED LIST changes: -D5 LR IV SOLUTION 1,000 ML IV ONE
--- NOTE | 2021-08-13 09:09 | Diagnostic Imaging Report ---
INDICATION: Hyperlipidemia and diabetes. CT coronary calcium scoring performed with noncontrast images of the heart followed by calculation of cardiac calcium score. Dose reduction protocol was used. Raw data images demonstrate no evidence of aortic aneurysm. There is no overt adenopathy in the mediastinum or zack. Visualized portions of the lung parenchyma show no focal abnormality, the entirety of the lung is not included on the study. There are coronary artery calcifications visualized in the LAD territory proximally. No other significant coronary calcifications are seen. Calcium score is as follows: 71.44 LAD, 0 for the remaining territories. IMPRESSION: Coronary calcium score was 71.4, compatible with mild overall plaque burden. Visualized calcium was confined to the LAD. No other incidental findings. Dictated by: Dictated on workstation # [id number]
== END ==
LOC: RAD FS 08:12
PROVIDERS: ATTEND Internal Medicine
DX: E78.5 Hyperlipidemia, unspecified (principal); E11.9 Type 2 diabetes mellitus without complications
CPT/HCPCS: 75571